=== PATIENT | male | born 1960 | race Caucasian/White ===

== ENCOUNTER 2018-06-11 05:40 | Emergency (ER) | payer OTHER ==
[~2018-06-11] VITALS: Ht 175.3 cm; Wt 104.3 kg
[2018-06-11 05:42] VITALS: BP 124/77
--- NOTE | 2018-06-11 05:42 | NUR ---
Note undone in EDM - 06/11/18 at 0602 by [id number] PT BIB BY FAMILY MEMBER WITH C/O OF ANXIETY PATIENT REPORTED TAKING ALCOHOL ,COCAINE, METHAMPHETAMINE. PATIENT WAS SO ANXIOUS AND TALK TO FAST AND HAD DIFFICULTY ON CONCENTRATION. PATIENT ABLE TO TRANSFER TO [facility] BY HIMSELF WITH NO PROBLEM, WITH STAEDY GAIT. EXPLAINED PLAN OF CARE AND VERBALIZED UNDERSTANDING. RESPIRATION EVEN AND UNLABORED. DENIES PAIN. PUT PATIENT IN HOSPITAL GOWN.PLACED IN [facility] AND POSITIONED IN COMFORT. BOTH RAILS UP AND BED DOWN. WILL CONTINUE TO MONITOR.
--- NOTE | 2018-06-11 05:49 | NUR ---
PT TAKEN TO BED 11
--- NOTE | 2018-06-11 05:50 | NUR ---
PT BIB BY FAMILY MEMBER WITH C/O OF ANXIETY PATIENT REPORTED TAKING ALCOHOL ,COCAINE, METHAMPHETAMINE. PATIENT WAS SO ANXIOUS AND TALK TO FAST AND HAD DIFFICULTY ON CONCENTRATION. PATIENT ABLE TO TRANSFER TO [facility] BY HIMSELF WITH NO PROBLEM, WITH STAEDY GAIT. EXPLAINED PLAN OF CARE AND VERBALIZED UNDERSTANDING. RESPIRATION EVEN AND UNLABORED. DENIES PAIN. PUT PATIENT IN HOSPITAL GOWN.PLACED IN [facility] AND POSITIONED IN COMFORT. BOTH RAILS UP AND BED DOWN. WILL CONTINUE TO MONITOR.
--- NOTE | 2018-06-11 06:07 | NUR ---
Dr. Vazquez evaluating patient at bedside.
--- NOTE | 2018-06-11 06:24 | NUR ---
EKG PERFORMED AT BEDSIDE WITH SPOUSE PRESENT. PT COVERED IN GOWN DURING PROCEDURE
--- NOTE | 2018-06-11 06:30 | NUR ---
PRINCIPAL ARCHITECT AT BEDSIDE
[2018-06-11 06:34] LABS: BARBITURATE, URINE NEG. ng/ml (NEG <=200); BENZODIAZEPINE, URINE NEG. ng/mL (NEG <=200); CANNABINOID, URINE NEG. ng/mL (NEG <=50); COCAINE, URINE NEG. ng/mL (NEG <=300); OPIATE, URINE NEG. ng/mL (NEG <=2000); PHENCYCLIDINE SCREEN,URINE NEG. ng/mL (NEG <=25)
[2018-06-11 06:53] LABS: ACETAMINOPHEN 1.8 ug/ml (10-30); ALBUMIN 4.3 g/dL (3.4-5.0); ANION GAP 15.5 (8-16); ASPARTATE AMINOTRANSFERASE 23 U/L (15-37); CARBON DIOXIDE 24.5 mmol/L (21-32); CHLORIDE 100 mmol/L (98-107); CREATININE 0.9 mg/dL (0.7-1.3); GFR ARICAN-AMERICAN 111 mL/min (>90); GLUCOSE 131 mg/dL (74-106); SODIUM SERUM 136 mmol/L (136-145); TOTAL BILIRUBIN 0.5 mg/dL (0.0-1.0); UREA NITROGEN, BLOOD 16 mg/dL (7-18)
[2018-06-11 06:58] LABS: SALICYLATE < 2.8 mg/dL (2.8-20.0)
--- NOTE | 2018-06-11 07:14 | NUR ---
GAVE REPORT TO PRASANTH HORNE.
[2018-06-11 07:19] LABS: APPEARANCE,URINE CLEAR (CLEAR); BILIRUBIN,URINE NEGATIVE (NEGATIVE); BLOOD, URINE 1+ (NEGATIVE); COLOR,URINE YELLOW (YELLOW); LEUKOCYTE ESTERASE ,URINE NEGATIVE (NEGATIVE); NITRITE, URINE NEGATIVE (NEGATIVE); UGLUCOSE NEGATIVE (NEGATIVE)
[2018-06-11 07:21] LABS: RBC,URINE 11-20 (MOD) /HPF (0-5); WBC,URINE 0-5 (RARE) /HPF (0-5)
[2018-06-11 07:47] VITALS: BP 143/98
== END 2018-06-11 07:48 | disposition home or self-care (01) ==
LOC: MED 05:40
DX: R40.4 Transient alteration of awareness (principal); R44.3 Hallucinations, unspecified; F10.129 Alcohol abuse with intoxication, unspecified; F14.129 Cocaine abuse with intoxication, unspecified
CPT/HCPCS: 36415; 80053; 80305; 81001; 84484; 87086; 93005; 99284; G0480; G0482